=== PATIENT | male | born 1965 | race Caucasian/White ===

== ENCOUNTER 2022-05-22 06:27 | Day surgery (SDC) | payer MEDICARE, MEDICAID, SELFPAY ==
[2022-05-18 12:36] VITALS: BMI 23.7
[2022-05-22 06:41] VITALS: BP 148/79; PULSE 64; RESP 18; TEMP 36.1; O2SAT 99
[2022-05-22] MEDS: sodium chloride 0.9% 1,000 ML 30 ML IV (06:52)
[2022-05-22 06:58] LABS: Glucose Point of Care 176 mg/dL (70-110)
--- NOTE | 2022-05-22 06:58 | P.ANESASSM_ITS ---
Pre-Anesthetic Assessment Height/Weight: Height 1.8 m Weight 77.111 kg Temp Pulse Resp BP Pulse Ox O2 Del Method 97.0 F L 64 18 148/79 99 05/22/22 06:41 05/22/22 06:41 05/22/22 06:41 05/22/22 06:41 05/22/22 06:41 05/22/22 06:41 Preop Diagnosis: Chronic pancreatitis Operation Date: 05/22/22 08:00 Proposed Procedures p EGD 99080 K86.1(Not Applicable) - Ross Levy MD Was Beta Nicholas taken within 24 hours: N/A Was Clonidine taken within 24 hours: N/A Last intake: Intake Last Liquid Date 05/21/22 Last Liquid Time 19:30 Last Solid Date 05/21/22 Last Solid Time 18:00 Social Tobacco 1-1.5 pack(s) per day Exam alert, oriented x 3, clear to auscultation bilaterally and regular rate & rhythm Airway Submandibular: within normal limits Cervical ROM: within normal limits Mallampati: Class II Dentition: full Pulmonary Shortness of Breath CV/HEM Coronary Artery Disease and Hypertension 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 None reported Hepatic pancreatitis GI Gastroesophageal Reflux Disease Metabolic Diabetes [place] [facility] [place] [facility] None reported Neuropsych Headache Anesthetic Plan ASA status: 2 Anesthesia: MAC Risk of > 500 ml blood loss (7ml/kg in children): No Medications/Allergies Home Medications Medication Instructions Recorded Confirmed Last Taken Type atorvastatin 20 mg tablet 40 mg PO DAILY 05/17/22 05/22/22 05/21/22 History carvedilol 6.25 mg tablet 6.25 mg PO BID 05/17/22 05/22/22 05/21/22 History glimepiride 4 mg tablet 4 mg PO BID 05/17/22 05/22/22 05/21/22 History insulin glargine 100 unit/mL (3 12 unit SUBCUT QAM 05/17/22 05/22/22 05/21/22 History mL) subcutaneous pen (Rohanaglar Jenny U-100 Insulin) lisinopril 20 mg tablet 20 mg PO DAILY #90 tabs 05/17/22 05/22/22 05/21/22 Rx metformin 1,000 mg tablet 1,000 mg PO BID 05/17/22 05/22/22 05/21/22 History omeprazole 40 mg capsule,delayed 40 mg PO DAILY #30 caps 05/17/22 05/22/22 05/21/22 Rx release Allergies Allergy/AdvReac Type Severity Reaction Status Date / Time No Known Allergies Allergy Unverified 05/22/22 06:39 Current Medications Generic Name Dose Route Start Last Admin Trade Name Liangq PRN Reason Stop Dose Admin Sodium Chloride 1,000 mls @ 30 mls/hr 05/22/22 06:30 05/22/22 06:52 Sodium Chloride 0.9% IV 30 mls/hr .Q24H ROSS Administration PFSH Anesthesia Family History (Updated 05/17/22 @ 14:48 by Esmer Pelaez LPN) Father Diabetes Mother Stroke Social History (Updated 05/17/22 @ 14:50 by Esmer Pelaez LPN) Smoking and tobacco status: current every day smoker Quit status (tobacco): not considering quitting Second hand smoke exposure: No Smoking risk assessment/counseling performed?: No Alcohol intake: current Alcohol intake frequency: holidays/special occasions only Alcohol type: beer Desire information about alcohol rehabilitation?: No Counseling given: No Desire information about substance/drug rehabilitation?: No Counseling given: No Adopted: No Caregiver/support person: No Lives independently: Yes Household members: spouse Housing: House Marital status: Highest education level completed: High School Graduate service: No Current occupational status: disabled Data Anesthesia Cardiac Studies: No Data to Display
--- NOTE | 2022-05-22 07:39 | P.HP_ITS ---
Same Day Surgery H&P Indication for Procedure/HPI DATE OF PROCEDURE: May 22, 2022 CHIEF COMPLAINT/INDICATIONFOR SURGICAL PROCEDURE: Epigastric pain PREOP DIAGNOSIS: Chronic pancreatitis PLANNED PROCEDURE: Operation Date: 05/22/22 08:00 Proposed Procedures p EGD 77292 K86.1(Not Applicable) - Ross Levy MD Medications/Allergies* Home Medications Medication Instructions Recorded Confirmed Type atorvastatin 20 mg tablet 40 mg PO DAILY 05/17/22 05/22/22 History carvedilol 6.25 mg tablet 6.25 mg PO BID 05/17/22 05/22/22 History glimepiride 4 mg tablet 4 mg PO BID 05/17/22 05/22/22 History insulin glargine 100 unit/mL (3 12 unit SUBCUT QAM 05/17/22 05/22/22 History mL) subcutaneous pen (Basaglar KwikPen U-100 Insulin) metformin 1,000 mg tablet 1,000 mg PO BID 05/17/22 05/22/22 History Allergies/Adverse Reactions Allergy/AdvReac Type Severity Reaction Status Date / Time No Known Allergies Allergy Unverified 05/22/22 06:39 Current Medications: Generic Name Dose Route Start Last Admin Trade Name Freq PRN Reason Stop Dose Admin Sodium Chloride 1,000 mls @ 30 mls/hr 05/22/22 06:30 05/22/22 06:52 Sodium Chloride 0.9% IV 30 mls/hr .Q24H ROSS Administration Pertinent History/Comorbid Conditions* Family History (Updated 05/17/22 @ 14:48 by Esmer Pelaez LPN) Father Mother Diabetes Father Stroke Mother Social History Smoking and tobacco status: current every day smoker Quit status (tobacco): not considering quitting Second hand smoke exposure: No Smoking risk assessment/counseling performed?: No Alcohol intake: current Alcohol intake frequency: holidays/special occasions only Alcohol type: beer Desire information about alcohol rehabilitation?: No Counseling given: No Desire information about substance/drug rehabilitation?: No Counseling given: No Adopted: No Caregiver/support person: No Lives independently: Yes Household members: spouse Housing: House Marital status: Highest education level completed: High School Graduate service: No Current occupational status: disabled Pertinent Exam Findings alert, oriented x 3, clear to auscultation bilaterally, regular rate & rhythm, operative site marked and procedure specific exam findings Recommendations Surgery/Procedure today Coding Level of Care Code Acute Materials Director for Chg Kuldip
[2022-05-22 08:59] VITALS: BP 122/68; PULSE 68; RESP 12; TEMP 36.4; O2SAT 94
[2022-05-22 09:15] VITALS: BP 122/69; PULSE 58; RESP 16; O2SAT 97
--- NOTE | 2022-05-22 13:16 | ANE.PACU2 ---
Inpatient post-anesthesia follow up: Airway intact: Yes Vital signs: Temperature 97.6 F Pulse Rate 58 Respiratory Rate 16 Blood Pressure 122/69 Pulse Oximetry 97 Oxygen Delivery Me thod Room Air Oxygen Flow Rate Fraction of Inspir ed Oxygen Hydration adequate: Yes Nausea and vomiting: No Pain level: 1 Mental status: Baseline
== END 2022-05-22 09:32 | disposition home or self-care (01) ==
PROVIDERS: Visit Provider Internal Medicine
PROC: 0DJ08ZZ Inspection of Upper Intestinal Tract, Via Natural or Artificial Opening Endoscopic (ICD-10-PCS; CPT 43235; principal; 2022-05-22 08:00)
DX: R10.13 Epigastric pain (principal); F17.210 Nicotine dependence, cigarettes, uncomplicated; I25.10 Atherosclerotic heart disease of native coronary artery without angina pectoris; I10 Essential (primary) hypertension; E11.9 Type 2 diabetes mellitus without complications; Z79.4 Long term (current) use of insulin
CPT/HCPCS: 36416; 43235; 82962; J2704; J7030

== ENCOUNTER 2022-06-15 10:54 | Outpatient (CLI) | payer MEDICARE, MEDICAID, SELFPAY ==
[2022-06-15] MEDS: iohexol 350 mg/mL 100 mL Btl IV (11:21)
[2022-06-15] MEDS: iohexol 350 mg/mL 100 mL Btl PO (11:21)
--- NOTE | 2022-06-15 13:00 | CT_ITS ---
WS: [id number] CT ABDOMEN PELVIS TECHNIQUE: Contrast-enhanced CT of the abdomen and pelvis with coronal and sagittal reformatted image s. CLINICAL INFORMATION: Chronic pancreatitis COMPARISON: 2018 DLP: 1002.[address] scans at [facility] use at least one of these dose optimization techniques: automated e xposure control; mA and/or kV adjustment per patient size (includes targeted exams where dose is matc hed to clinical indication); or iterative reconstruction. FINDINGS: Lung bases are well aerated. Normal liver. Normal spleen. Normal GE junction. Normal portal vein and splenic vein. Normal pancreatic parenchymal enhancement. No evidence of acute pancreatitis. No pancre atic calcifications or pseudocyst. Adrenal glands are normal. Normal renal parenchymal enhancement. No hydronephrosis. Celiac and SMA are patent. Normal caliber abdominal aorta. Aortic calcification. Urine distended bladder. Small cystocele. Mild prostate enlargement measuring 4.7 CM. Sigmoid diverti culosis. No evidence of high-grade small or large bowel obstruction. Normal visualized lumbar spine. CT/CT abdomen pelvis w con* [id number] IMPRESSION: 1. Normal pancreatic parenchymal enhancement. No evidence of acute pancreatiti s or pseudocyst. 2. Normal renal parenchymal enhancement. No hydronephrosis. 3. Prior cholecystectomy. 4. Urine distended bladder. Mild prostate enlargement. 5. Sigmoid diverticulosis. 6. No other suspicious findings.
--- NOTE | 2022-06-16 13:00 | MR_ITS ---
WS: [id number] MRI/MRCP OF THE ABDOMEN WITHOUT GADOLINIUM ENHANCEMENT TECHNIQUE: Thin and thick slab MRCP, Axial T2, Coronal MRCP, Axial Dual Echo, and Axial 2-D Fiesta imaging was obtained. Coronal 2-D Fiesta imaging. CLINICAL INFORMATION: chronic pancreatitis COMPARISON: CT June 15, 2022 FINDINGS: Normal liver. Prior cholecystectomy. No intrahepatic biliary ductal dilatation. Normal portal vein an d splenic vein. Pancreas appears normal. Normal pancreatic duct. Normal spleen. Common bile duct appe ars normal and tapers at the pancreatic head. No evidence of choledocholithiasis. No evidence of panc reatic head mass. Normal caliber abdominal aorta. Adrenal glands are normal. No hydronephrosis in eit her kidney. No other suspicious findings.
== END 2022-06-15 10:55 | disposition home or self-care (01) ==
LOC: RAD 10:55
PROVIDERS: Visit Provider Internal Medicine
DX: K86.1 Other chronic pancreatitis (principal); K57.30 Diverticulosis of large intestine without perforation or abscess without bleeding; N40.0 Benign prostatic hyperplasia without lower urinary tract symptoms; Z90.49 Acquired absence of other specified parts of digestive tract
CPT/HCPCS: 74177

== ENCOUNTER 2022-06-16 10:42 | Outpatient (CLI) | payer MEDICARE, MEDICAID, SELFPAY ==
--- NOTE | 2022-06-16 14:35 | MR_ITS ---
WS: [id number] MRI/MRCP OF THE ABDOMEN WITHOUT GADOLINIUM ENHANCEMENT TECHNIQUE: Thin and thick slab MRCP, Axial T2, Coronal MRCP, Axial Dual Echo, and Axial 2-D Fiesta imaging was obtained. Coronal 2-D Fiesta imaging. CLINICAL INFORMATION: chronic pancreatitis COMPARISON: CT June 15, 2022 FINDINGS: Normal liver. Prior cholecystectomy. No intrahepatic biliary ductal dilatation. Normal portal vein an d splenic vein. Pancreas appears normal. Normal pancreatic duct. Normal spleen. Common bile duct appe ars normal and tapers at the pancreatic head. No evidence of choledocholithiasis. No evidence of panc reatic head mass. Normal caliber abdominal aorta. Adrenal glands are normal. No hydronephrosis in eit her kidney. No other suspicious findings. MR/MR MRCP [id number] Impression: 1. Prior cholecystectomy. 2. No intrahepatic biliary ductal dilatation. Normal common bile duct. No evid ence of choledocholithiasis. 3. Normal pancreas and pancreatic duct. No evidence of pancreatic head mass. 4. Normal spleen. 5. No hydronephrosis in either kidney. 6. No other remarkable findings
== END 2022-06-16 10:43 | disposition home or self-care (01) ==
LOC: RADOUTREAD 06-21 10:44 → RAD 06-21 12:42
PROVIDERS: Visit Provider Internal Medicine
DX: K86.1 Other chronic pancreatitis (principal); Z90.49 Acquired absence of other specified parts of digestive tract
CPT/HCPCS: 74181